=== PATIENT | male | born 1950 | race Caucasian/White ===

== ENCOUNTER 2017-08-18 19:32 | Emergency (ER) | payer OTHER, MEDICARE ==
[~2017-08-18] VITALS: Ht 172.7 cm; Wt 59.0 kg
[~2017-08-18 19:32] MED LIST: ALENDRONATE SOD70 M2 PO; ASPIR 8181 MG PO; ATORVASTATIN CA10 MG PO; CARVEDILOL3.125 MG PO; COREG 3.125M3.125 MG PO; DUONEB 3 MG/3 ML3 ML INH/SOL; FLEXERIL10 MG PO; MUCINEX1200 MG PO; NAPROXEN500 MG PO; PERCOCET 325 MG1 TA2 PO; PERCOCET 5-3251 EACH PO; PLAVIX 75MG TAB75 MG PO; PROAIR HFA0.09 MG/Ac INH; SPIRIVA 18 MCG18 MCG INH; TORADOL10 MG PO; TRAMADOL50 MG PO; VALIUM5 M1 PO; VITAMIN D250000 UNIT PO; ZITHROMAX Z-PA250 M1 PO
[2017-08-18 19:48] VITALS: BP 157/95
== END 2017-08-18 19:51 | disposition admitted as inpatient to this hospital (09) ==
LOC: ERH 19:32
DX: M54.2 Cervicalgia (principal)

== ENCOUNTER 2017-10-30 11:04 | Emergency (ER) | payer OTHER, MEDICARE ==
[~2017-10-30] VITALS: Ht 172.7 cm; Wt 63.5 kg
--- NOTE | 2017-10-30 12:23 | ED NECK/BACK PAIN COMPLAINT ---
History of Present Illness General Chief Complaint: Low Back Pain/Injury Stated Complaint: LBP Source: patient Exam Limitations: no limitations Vital Signs & Intake/Output Vital Signs & Intake/Output Vital Signs Date Time Temp Pulse Resp B/P B/P Pulse O2 O2 Flow FiO2 Mean Ox Delivery Rate 10/30 1445 98.3 76 18 140/72 98 Room Air 10/30 1130 98.3 86 18 141/88 99 Room Air Allergies Coded Allergies: Penicillins (Severe, "I DONT KNOW. I GO INTO A COMA OR SOMETHING" 10/12/15) procaine (Severe, NOVOCAINE - DOESNT WORK PER PT 10/12/15) egg (DYSPNEA 10/12/15) Reconcile Medications Alendronate Sodium 70 MG TABLET 1 TAB PO QSUN BONES (Reported) in the morning, at least 30 minutes before the first food, beverage, or medication of the day Atorvastatin Calcium 10 MG TABLET 1 TAB PO DAILY CHOLESTEROL (Reported) Carvedilol 25 MG TABLET 1 TAB PO BID HEART/BP (Reported) Clopidogrel Bisulfate (Clopidogrel) 75 MG TABLET 1 TAB PO DAILY BLOOD THINNER (Reported) Ergocalciferol (Vitamin D2) (Vitamin D2) 50,000 UNIT CAPSULE 1 CAP PO QSUN SUPPLEMENT (Reported) Tylenol With Codeine (Tylenol With Codeine #3 Tablet) 300 MG-30 MG TABLET 1 TAB PO BIDP PRN PAIN Triage Note: C/O PAIN IN R HIP AND BACK 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 Triage Nurses Notes Reviewed? yes Onset: Abrupt Duration: constant Timing: recent history Radiation: none HPI: Patient is a 67-year-old male who presents emergency room with concerns stating yesterday while unloading groceries he was bending over stood up and had sharp stabbing severe right-sided pelvic and hip pain. Patient states that ambulation makes worse rest makes better. Denies any back pain abdominal pain knee pain. Patient took Tylenol with relief of symptoms however he is advised to present to emergency room for concerns of fracture. (Aubrey Tee) Past History Travel History Traveled to [place] past 21 day No Medical History Any Pertinent Medical History? see below for history Neurological: NONE EENT: NONE Cardiovascular: CAD, hypertension Respiratory: COPD, obstructive sleep apnea Gastrointestinal: NONE Hepatic: hepatitis C Renal: nephrolithiasis Musculoskeletal: chronic back pain, osteoporosis Psychiatric: NONE Endocrine: NONE Surgical History Surgical History: CARDIAC STENTS 2005 Psychosocial History What is your primary language Kazakh Tobacco Use: Current Daily Use Daily Tobacco Use Amount/Type: => 5 Cigarettes daily ETOH Use: occasional use Family History Hx Contributory? No (Aubrey Tee) Review of Systems Review of Systems Constitutional: Reports: no symptoms. Eyes: Reports: no symptoms. Ears, Nose, Throat, Mouth: Reports: no symptoms. Respiratory: Reports: no symptoms. Cardiovascular: Reports: no symptoms. Gastrointestinal/Abdominal: Reports: no symptoms. Musculoskeletal: Reports: see HPI, joint pain, muscle pain. Skin: Reports: no symptoms. Neurological/Psychological: Reports: no symptoms. All Other Systems: Reviewed and Negative (Aubrey Tee) Physical Exam Physical Exam General Appearance: no apparent distress, alert, comfortable Head: atraumatic Eyes: Bilateral: normal appearance. Ears, Nose, Throat, Mouth: moist mucous membrane Neck: normal inspection, supple, full range of motion Respiratory: no respiratory distress Gastrointestinal: normal bowel sounds, soft, non-tender Neurologic/Psych: no motor/sensory deficits Skin: intact, normal color Comments: RIGHT HIP- Right lateral ISCHIAL point tenderness and right hip point tenderness Full active range of motion patient able to perform straight leg raise Core Measures CVA/TIA Diagnosis: No (Betsy SOSA,Aubrey) Progress Differential Diagnosis: AAA, aortic dissection, C spine injury, carotid dissection, cauda equina syn, herniated disc, myofascial strain, pyelo/UTI, sciatica, spinal cord inj, thoracic outlet syn, T/L spine injury, ureterolithiasis Plan of Care: Orders Procedure Date/time Status CT PELVIS WO IV CONTRAST 10/30 1240 Active Patient upon initial presentation resting completely sitting and noted to have normal steady gait Imaging will be proceeded with TO EVALUATE PELVIS CT scan showed no acute process specifically no fractures. Patient was strongly advised to follow up with primary care doctor and discharged instructions and plan Diagnostic Imaging: Viewed by Me: CT Scan. Radiology Impression: no acute abnormality, no fracture Comments: PATIENT: PUMA CLANCY PRESENT AGE: 67 PATIENT ACCOUNT NO: [id number] : 50 LOCATION: [facility] ORDERING PHYSICIAN: Aubrey SOSA SERVICE DATE: 10/30/17-1240 EXAM TYPE: CAT - CT PELVIS WO IV CONTRAST EXAMINATION: CT PELVIS WITHOUT CONTRAST CLINICAL INFORMATION: Osteoporosis. Right pelvic pain. COMPARISON: CT of the abdomen and pelvis done on 09/06/2015. TECHNIQUE: Helical scanning was performed with submillimeter collimation through the pelvis. Sagittal and coronal multiplanar 2-D reconstructions were obtained. DLP: 337.12 mGy-cm FINDINGS: PELVIS: There is no pelvic mass. Atherosclerotic disease is noted within the aorta and its branches. Small protrusion of the mid part of the prostate into the base of the urinary bladder is noted. Significant prostatic parenchymal calcification is noted. No significant change since 09/06/2015. There is no free fluid and/or free air present. There is no pelvic hematoma identified. OSSEOUS STRUCTURES: Marked diffuse osteopenia is noted, similar to prior study. Presumed bone islands are noted within the right femoral neck, right ischial tuberosity, unchanged. Specifically, there is no evidence of any displaced pelvic fracture or hip fracture identified on either side. IMPRESSION: 1. Marked diffuse osteopenia involving all the visualized bones, unchanged since 09/06/2015. 2. Stable likely bone islands within the right hemipelvis and right femur. 3. Specifically, no CT evidence of any displaced pelvic or hip fracture is identified. DICTATED BY: Jeronimo Rivera MD DATE/TIME DICTATED:10/30/171422 RESIDENTIAL APPRAISER:RO (Aubrey Tee) Departure Departure Disposition: HOME OR SELF CARE Condition: Stable Clinical Impression Primary Impression: Pain in joint involving right pelvic region and thigh Referrals: Michelle ELIZALDE,Amy Jin (PCP/Family) Efraín Capone MD Additional Instructions: As discussed begin the prescription of Tylenol with codeine as directed for your pain, if no better in 4-5 days follow-up with orthopedic Dr. Capone for further evaluation treatment. If symptoms worsen return to emergency ROOM. Prescriptions waiting at [facility] Follow-up next week if your primary care doctor Departure Forms: Customer Survey General Discharge Information Prescriptions: Current Visit Scripts Tylenol With Codeine (Tylenol With Codeine #3 Tablet) 1 TAB PO BIDP PRN PAIN #8 TAB (Aubrey Tee) PA/TRANSIT MANAGER Co-Sign Statement Statement: ED Attending supervision documentation- x I saw and evaluated the patient. I have also reviewed all the pertinent lab results and diagnostic results. I agree with the findings and the plan of care as documented in the PA's/TRANSIT MANAGER's documentation. [] I have reviewed the ED Record and agree with the PA's/TRANSIT MANAGER's documentation. [] Additions or exceptions (if any) to the PAs/TRANSIT MANAGER's note and plan are summarized below: [] (Bekah ELIZALDE,Lam[place])
[2017-10-30] MEDS ORDERED: CLOPIDOGREL75 M1 PO (12:58)
[2017-10-30] MEDS ORDERED: CARVEDILOL25 M1 PO (12:58)
[2017-10-30] MEDS ORDERED: ATORVASTATIN CA10 M1 PO (12:58)
[2017-10-30] MEDS ORDERED: VITAMIN D250000 UNIT PO (12:59)
[2017-10-30] MEDS ORDERED: TYLENOL WITH C1 EACH PO (13:42)
--- NOTE | 2017-10-30 14:37 | CT SCAN REPORT ---
EXAMINATION: CT PELVIS WITHOUT CONTRAST CLINICAL INFORMATION: Osteoporosis. Right pelvic pain. COMPARISON: CT of the abdomen and pelvis done on 09/06/2015. TECHNIQUE: Helical scanning was performed with submillimeter collimation through the pelvis. Sagittal and coronal multiplanar 2-D reconstructions were obtained. DLP: 337.12 mGy-cm FINDINGS: PELVIS: There is no pelvic mass. Atherosclerotic disease is noted within the aorta and its branches. Small protrusion of the mid part of the prostate into the base of the urinary bladder is noted. Significant prostatic parenchymal calcification is noted. No significant change since 09/06/2015. There is no free fluid and/or free air present. There is no pelvic hematoma identified. OSSEOUS STRUCTURES: Marked diffuse osteopenia is noted, similar to prior study. Presumed bone islands are noted within the right femoral neck, right ischial tuberosity, unchanged. Specifically, there is no evidence of any displaced pelvic fracture or hip fracture identified on either side. IMPRESSION: 1. Marked diffuse osteopenia involving all the visualized bones, unchanged since 09/06/2015. 2. Stable likely bone islands within the right hemipelvis and right femur. 3. Specifically, no CT evidence of any displaced pelvic or hip fracture is identified.
[2017-10-30 14:45] VITALS: BP 140/72
== END 2017-10-30 14:45 ==
LOC: ERH 11:04
DX: M79.651 Pain in right thigh (principal); M25.551 Pain in right hip

== ENCOUNTER 2018-04-11 10:38 | Emergency (ER) | payer OTHER, MEDICARE ==
[~2018-04-11] VITALS: Ht 172.7 cm; Wt 60.8 kg
[~2018-04-11 10:38] MED LIST changes: +ASPIRIN EC81 M1 PO; +ATORVASTATIN CA10 M1 PO; +CARVEDILOL25 M1 PO; +CIPRO500 M1 PO; +CLOPIDOGREL75 M1 PO; +DELTASONE20 MG PO; +DOXYCYCLINE HY100 M4 PO; +FLOMAX0.4 M1 PO; +PROAIR HFA8.5 GM INH; +TYLENOL WITH C1 EACH PO
[2018-04-11 10:39] VITALS: BP 114/82
--- NOTE | 2018-04-11 11:13 | ED GENERAL ADULT ---
History of Present Illness General Chief Complaint: General Adult Stated Complaint: SEEN YESTERDAY NEEDS MEDS REFILL ONLY FOR TODAY Source: patient Exam Limitations: no limitations Vital Signs & Intake/Output Vital Signs & Intake/Output Vital Signs Date Time Temp Pulse Resp B/P B/P Pulse O2 O2 Flow FiO2 Mean Ox Delivery Rate 04/11 1039 98.0 92 18 114/82 94 Room Air Room Air Allergies Coded Allergies: Penicillins (Severe, "I DONT KNOW. I GO INTO A COMA OR SOMETHING" 10/12/15) procaine (Severe, NOVOCAINE - DOESNT WORK PER PT 10/12/15) egg (DYSPNEA 10/12/15) Reconcile Medications Albuterol Sulfate (Proair Hfa) 90 MCG HFA.AER.AD 2 PUF INH AD PRN COPD ( Reported) Alendronate Sodium 70 MG TABLET 1 TAB PO QSUN BONES (Reported) in the morning, at least 30 minutes before the first food, beverage, or medication of the day Aspirin (Ecotrin*) 81 MG TABLET.DR 1 TAB PO DAILY HEART/BLOOD (Reported) Atorvastatin Calcium 10 MG TABLET 1 TAB PO DAILY CHOLESTEROL (Reported) Carvedilol 25 MG TABLET 1 TAB PO BID HEART/BP (Reported) Clopidogrel Bisulfate (Clopidogrel) 75 MG TABLET 1 TAB PO DAILY BLOOD THINNER (Reported) Doxycycline Hyclate 100 MG TABLET 1 TAB PO BID copd exacerbation Ergocalciferol (Vitamin D2) (Vitamin D2) 50,000 UNIT CAPSULE 1 CAP PO QSUN SUPPLEMENT (Reported) Prednisone (Deltasone) 20 MG TABLET 2 TAB PO DAILY copd Triage Note: PT TO ED "I WAS HERE LAST NIGHT AND DIAGNOSED WITH EARLY PNEUMONIA, I GOT ANTIBIOTICS, WENT TO THE PHARMACY TODAY BUT IT'S NOT OPEN, I NEED ENOUGHT TO TIDE ME OVER UNTIL IT'S OPENED TOMORROW." Triage Nurses Notes Reviewed? yes HPI: 67-year-old male presents emergency department reporting that yesterday he was seen here and treated for early onset pneumonia. He was given a dose of doxycycline and steroid and a prescription was [facility] in [place] however it is currently closed today. He was told to return today to this ED for a dose of each if the pharmacy was closed. He states he will pear picker the prescriptions tomorrow at the pharmacy. Past History Travel History Traveled to [place] past 21 day No Medical History Any Pertinent Medical History? 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 No Review of Systems Review of Systems Constitutional: Reports: see HPI. EENTM: Reports: see HPI. Respiratory: Reports: see HPI. Cardiovascular: Reports: no symptoms. GI: Reports: no symptoms. Genitourinary: Reports: no symptoms. Musculoskeletal: Reports: no symptoms. Skin: Reports: no symptoms. Neurological/Psychological: Reports: no symptoms. Hematologic/Endocrine: Reports: no symptoms. Immunologic/Allergic: Reports: no symptoms. All Other Systems: Reviewed and Negative Physical Exam Physical Exam General Appearance: well developed/nourished, no apparent distress, alert, awake , comfortable Head: atraumatic, normal appearance Eyes: Bilateral: normal appearance. Ears, Nose, Throat: hearing grossly normal Neck: normal inspection, full range of motion Respiratory: crackles (lower lung saez), wheezing (all lung saez) Cardiovascular: regular rate/rhythm Neurologic/Psych: no motor/sensory deficits, awake, alert, oriented x 3, normal gait, normal mood/affect Skin: intact, normal color, warm/dry Core Measures ACS in differential dx? No CVA/TIA Diagnosis: No Sepsis Present: No Sepsis Focused Exam Completed? No Progress Differential Diagnoses I considered the following diagnoses in my evaluation of the patient: [ medication administration d/t pharmacy closed today for holiday] Plan of Care: Current Medications Sig/Daniel Start time Last Medication Dose Stop Time Status Admin Methylprednisolone 4 MG ONCE ONE 04/11 1115 CAN (Medrol) 04/11 1116 67-year-old male presented to the emergency department for a medication administration with doxycycline 100 mg and prednisone 10 mg tablets because pharmacy close today for holiday. Patient unable to pear picker his prescription. He will pear picker the full prescription tomorrow. He denies any new or worsening symptoms from yesterday's visit. Initial ED EKG: none Departure Departure Disposition: HOME OR SELF CARE Condition: Stable Clinical Impression Primary Impression: Medication administered Referrals: Michelle ELIZALDE,Amy Jin (PCP/Family) Additional Instructions: tower supervisor her prescriptions tomorrow at the pharmacy intake as directed. Follow- up with your primary care this week. Return to the emergency department with new or worsening symptoms. Departure Forms: Customer Survey General Discharge Information Critical Care Note Critical Care Note Critical Care Time: non-applicable Customer Survey General Discharge Information
== END 2018-04-11 11:21 ==
LOC: ERH 10:38
DX: Z51.81 Encounter for therapeutic drug level monitoring (principal); F17.210 Nicotine dependence, cigarettes, uncomplicated; J18.9 Pneumonia, unspecified organism; I10 Essential (primary) hypertension; J44.9 Chronic obstructive pulmonary disease, unspecified
CPT/HCPCS: J7512

== ENCOUNTER 2018-05-06 23:40 | Emergency (ER) | payer OTHER, MEDICARE ==
[~2018-05-06] VITALS: Ht 172.7 cm; Wt 60.8 kg
--- NOTE | 2018-05-06 23:45 | ED CARDIAC/CP/PALPITATIONS ---
History of Present Illness General Chief Complaint: Chest Pain Stated Complaint: "CHEST PAIN RADIATES TO LT AND RT ARMS" Source: patient Exam Limitations: no limitations Vital Signs & Intake/Output Vital Signs & Intake/Output Vital Signs Date Time Temp Pulse Resp B/P B/P Pulse O2 O2 Flow FiO2 Mean Ox Delivery Rate 05/07 0147 50 20 145/66 98 Room Air 05/07 0105 77 16 119/71 98 Room Air 05/07 0038 121/76 05/07 0031 161/90 05/06 2354 97.5 60 18 162/81 97 Room Air ED Intake and Output 05/07 0000 05/06 1200 Intake Total Output Total Balance Patient 134 lb Weight Allergies Coded Allergies: Penicillins (Severe, "I DONT KNOW. I GO INTO A COMA OR SOMETHING" 10/12/15) procaine (Severe, NOVOCAINE - DOESNT WORK PER PT 10/12/15) egg (DYSPNEA 10/12/15) Reconcile Medications Albuterol Sulfate (Proair Hfa) 90 MCG HFA.AER.AD 2 PUF INH AD PRN COPD ( Reported) Alendronate Sodium 70 MG TABLET 1 TAB PO QSUN BONES (Reported) in the morning, at least 30 minutes before the first food, beverage, or medication of the day Aspirin (Ecotrin*) 81 MG TABLET.DR 1 TAB PO DAILY HEART/BLOOD (Reported) Atorvastatin Calcium 10 MG TABLET 1 TAB PO DAILY CHOLESTEROL (Reported) Carvedilol 25 MG TABLET 1 TAB PO BID HEART/BP (Reported) Clopidogrel Bisulfate (Clopidogrel) 75 MG TABLET 1 TAB PO DAILY BLOOD THINNER (Reported) Doxycycline Hyclate 100 MG TABLET 1 TAB PO BID copd exacerbation Ergocalciferol (Vitamin D2) (Vitamin D2) 50,000 UNIT CAPSULE 1 CAP PO QSUN SUPPLEMENT (Reported) Prednisone (Deltasone) 20 MG TABLET 2 TAB PO DAILY copd Triage Nurses Notes Reviewed? yes Onset: Gradual Duration: minute(s): Timing: single episode today Quality/Severity: moderate Location: central Radiation: arms Activities at Onset: none Prior Chest Pain/Card Workup: heart attack Modifying Factors: Worsens With: palpation. Aspirin Today: no aspirin today Associated Symptoms: radiation down both arms HPI: 67 yo gentleman h/o [place] in 2004, w/ stents presents with 30 minutes of 8/10 substernal chest pressure, with radiation down both arms, and slightly up neck. No dyspnea, diaphoresis, chills, wheezing, lower extremity edema. He is otherwise well. Past History Travel History Traveled to [place] past 21 day No Medical History Any Pertinent Medical History? 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 No Review of Systems Review of Systems Constitutional: Reports: no symptoms. EENTM: Reports: no symptoms. Respiratory: Reports: no symptoms. Cardiovascular: Reports: no symptoms. GI: Reports: no symptoms. Genitourinary: Reports: no symptoms. Musculoskeletal: Reports: no symptoms. Skin: Reports: no symptoms. Neurological/Psychological: Reports: no symptoms. Hematologic/Endocrine: Reports: no symptoms. Immunologic/Allergic: Reports: no symptoms. All Other Systems: Reviewed and Negative Physical Exam Physical Exam General Appearance: well developed/nourished, mild distress Head: atraumatic, normal appearance Eyes: Bilateral: normal appearance. Ears, Nose, Throat: normal pharynx, normal ENT inspection Neck: normal inspection, supple, full range of motion Respiratory: normal breath sounds, chest non-tender, no respiratory distress, quiet respiration, lungs clear Cardiovascular: regular rate/rhythm Gastrointestinal: normal bowel sounds, soft, non-tender, no organomegaly Back: normal inspection, normal range of motion Extremities: normal inspection, normal capillary refill, normal range of motion, no edema Neurologic/Psych: no motor/sensory deficits, awake, alert, oriented x 3 Skin: intact, normal color, warm/dry Core Measures ACS in differential dx? No CVA/TIA Diagnosis No Sepsis Present: No Sepsis Focused Exam Completed? No Progress Differential Diagnosis: AMI, unstable angina Plan of Care: Orders Procedure Date/time Status EKG 05/07 0137 Active TROPONIN LEVEL 05/06 2345 Complete PARTIAL THROMBOPLASTIN TIME 05/06 2345 Complete PROTHROMBIN TIME 05/06 2345 Complete LIPASE 05/06 2345 Complete HEPATIC FUNCTION PANEL 05/06 234 Complete D-DIMER 05/06 2345 Complete CBC WITHOUT DIFFERENTIAL 05/06 2345 Complete BASIC METABOLIC PANEL 09/28 2345 Complete AMYLASE 05/06 2345 Complete EKG 05/06 2342 Active Laboratory Tests 05/07/18 0025: Anion Gap 8, Estimated GFR > 60, BUN/Creatinine Ratio 25.0, Glucose 122 H, Calcium 9.2, Total Bilirubin 0.4, Direct Bilirubin 0.3, AST 17, ALT 22, Alkaline Phosphatase 44, Troponin I 0.02, Total Protein 6.8, Albumin 4.2, Amylase 44, Lipase 122, PT 10.9, INR 1.00, APTT 38 H, D-Dimer High Sensitivty < 200, CBC w Diff NO MAN DIFF REQ, RBC 5.11, MCV 92.5, MCH 31.6 H, MCHC 34.1, RDW 14.0, MPV 8.4, Gran % 72.9, Lymphocytes % 16.3 L, Monocytes % 7.6, Eosinophils % 2.5, Basophils % 0.7, Absolute Granulocytes 5.1, Absolute Lymphocytes 1.1 L, Absolute Monocytes 0.5, Absolute Eosinophils 0.2, Absolute Basophils 0 Diagnostic Imaging: Viewed by Me: Radiology Read. Discussed w/RAD: Radiology Read. CXR Impression: PATIENT: PUMA CLANCY PRESENT AGE : 67 PATIENT ACCOUNT NO: [id number] : 50 LOCATION: [facility] ORDERING PHYSICIAN: Aung Valdes MD SERVICE DATE: 05/06/18 EXAM TYPE: RAD - XRY-PORTABLE CHEST XRAY EXAMINATION: XR PORTABLE CHEST CLINICAL INFORMATION: Chest pain. COMPARISON: 04/10/2018 TECHNIQUE: Portable frontal view of the chest was obtained. FINDINGS: Stable exam. No focal lung opacity. No pneumothorax or significant pleural effusions allowing for exclusion of the right costophrenic angle from the [id number]. Cardiac silhouette is stable. Tortuosity of the thoracic aorta with aortic arch calcifications, as before. Wedge-shaped compression deformities involving the lower thoracic spine appear seen on the prior radiograph. IMPRESSION: Stable exam. No acute intrathoracic abnormality. Emphysematous changes. DICTATED BY: Giuliano Moore MD DATE/TIME DICTATED:05/07/1834 SEAM HAMMERER:RO DATE/TIME TRANSCRIBED:34 CONFIDENTIAL, DO NOT COPY WITHOUT APPROPRIATE AUTHORIZATION. < Electronically signed in Other Vendor System> SIGNED BY: Giuliano Moore MD 05/07/18 0042 Initial ED EKG: Q WAVES IN V1, V2, NO ACUTE CHANGE FROM PRIOR. Departure Departure Disposition: STILL A PATIENT Condition: Stable Clinical Impression Primary Impression: Chest pain Secondary Impressions: Angina at rest, Left against medical advice Referrals: Michelle ELIZALDE,Amy Jin (PCP/Family) Departure Forms: Customer Survey General Discharge Information Comments 05/07/18, 1:55... pt wishes to leave against medical advice. "I feel fine and I have a lot of things to do." I discussed with him at length the risks of leaving against medical advice, including the risk of . He expresses understanding, is awake and alert. He and his cart attendant have signed the paperwork. Pt encouraged to call 911 if he develops chest pain again. 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 Critical Care Note Critical Care Note Critical Care Time: non-applicable
--- NOTE | 2018-05-07 00:42 | RADIOLOGY REPORT ---
EXAMINATION: XR PORTABLE CHEST CLINICAL INFORMATION: Chest pain. COMPARISON: 04/10/2018 TECHNIQUE: Portable frontal view of the chest was obtained. FINDINGS: Stable exam. No focal lung opacity. No pneumothorax or significant pleural effusions allowing for exclusion of the right costophrenic angle from the [id number]. Cardiac silhouette is stable. Tortuosity of the thoracic aorta with aortic arch calcifications, as before. Wedge-shaped compression deformities involving the lower thoracic spine appear seen on the prior radiograph. IMPRESSION: Stable exam. No acute intrathoracic abnormality. Emphysematous changes.
[2018-05-07 00:45] LABS: ABSOLUTE BASOPHIL COUNT 0 /CUMM (0.0-0.2); ABSOLUTE EOSINOPHIL COUNT 0.2 /CUMM (0.0-0.7); ABSOLUTE GRANULOCYTE CT 5.1 /CUMM (1.4-6.5); ABSOLUTE LYMPH COUNT 1.1 /CUMM (1.2-3.4); ABSOLUTE MONOCYTE COUNT 0.5 /CUMM (0.10-0.60); BASOPHIL % 0.7 % (0.0-2.0); EOSINOPHIL % 2.5 % (0-5); GRANULOCYTE % 72.9 % (42.2-75.2); HEMATOCRIT 47.3 % (42-52); MEAN CORPUSCULAR HGB 31.6 PG (27.0-31.0); MEAN CORPUSCULAR HGB CONC 34.1 G/DL (33.0-37.0); MEAN CORPUSCULAR VOLUME 92.5 FL (80.0-94.0); MEAN PLATELET VOLUME 8.4 FL (7.4-10.4); PLATELET COUNT 255 /CUMM (130-400); RED BLOOD CELL CT 5.11 /CUMM (4.70-6.10)
[2018-05-07 01:24] LABS: PT 10.9 SEC (9.4-12.5); PTT 38 SEC (25-37)
[2018-05-07 01:47] VITALS: BP 145/66
== END 2018-05-07 02:04 | disposition left against medical advice (07) ==
LOC: ERH 23:40
PROVIDERS: Pediatrics
DX: I20.9 Angina pectoris, unspecified (principal); R07.89 Other chest pain; I25.10 Atherosclerotic heart disease of native coronary artery without angina pectoris; I10 Essential (primary) hypertension; J44.9 Chronic obstructive pulmonary disease, unspecified; G47.30 Sleep apnea, unspecified; B19.20 Unspecified viral hepatitis C without hepatic coma
CPT/HCPCS: 71045; 93005; 93010; 96361; 96374; J3490